=== PATIENT | male | born 1935 | race Caucasian/White ===

== ENCOUNTER → 2016-07-14 | Outpatient (CLI) | payer OTHER ==
[~2016-07-14] MED LIST: ALBUAER3 IN; ASPI81CH43 PO; ATOR20TA50 PO; CHOL20007 PO; FLUT250M2 INH; OMEP20TA44 PO
[2016-07-14 09:21] LABS: Basophils # (auto) 0 uL; Basophils % (auto) 0.3 % (0.0-2.0); DEFINITIVE VIEW TRANSMISSION; Eosinophils # (auto) 0.2 uL; Eosinophils % (auto) 2.4 % (0.0-7.0); Hematocrit 42.5 % (41.0-53.0); Hemoglobin 13.9 g/dL (13.5-17.5); Lymphocytes # (auto) 2.2 uL; Lymphocytes % (auto) 25.8 % (10.0-50.0); Mean Corpuscular Hemoglobin 26.5 pg (28.0-32.0); Mean Corpuscular Hgb Conc. 32.6 g/dL (32.0-36.0); Mean Corpuscular Volume 81.4 fL (80.0-100.0); Mean Platelet Volume 9.4 fL (7.4-10.4); Monocytes # (auto) 1.2 uL; Monocytes % (auto) 13.9 % (0.0-12.0); Neutrophils # (auto) 4.8 uL; Neutrophils % (auto) 57.6 % (37.0-80.0); Platelet Count (auto) 238 10^3/uL (140-450); White Blood Cell 8.4 10^3/uL (4.4-10.8)
[2016-07-14 09:30] LABS: Urine Bilirubin Negative (Negative); Urine Blood Negative /uL (Negative); Urine Color Yellow (Yellow); Urine Glucose Normal (Normal); Urine Ketone Negative (Negative); Urine Nitrite Negative (Negative); Urine RBC <1 /hpf (0 - 3); Urine Urobilinogen Normal (Negative); Urine pH 5.5 (5.0-8.0)
[2016-07-14 09:52] LABS: Albumin 3.4 g/dL (3.4-5.0); BUN/Creatinine Ratio 15.2; Bilirubin, Total 0.6 mg/dL (0.2-1.0); Calcium 8.8 mg/dL (8.5-10.1); Potassium 4.2 mmol/L (3.5-5.1); Total Protein 6.9 g/dL (6.4-8.2)
== END | disposition home or self-care (01) ==
LOC: LAB 08:07
DX: I10 Essential (primary) hypertension (principal); C67.9 Malignant neoplasm of bladder, unspecified; N18.2 Chronic kidney disease, stage 2 (mild); E78.4 Other hyperlipidemia
CPT/HCPCS: 36415; 80053; 80061; 81001; 84443; 85025

== ENCOUNTER → 2016-08-06 | Outpatient (CLI) | payer OTHER | END | disposition home or self-care (01) | LOC: LAB 08:51 | DX: C67.9 Malignant neoplasm of bladder, unspecified (principal) | CPT/HCPCS: 36415; 82565; 84520 ==

== ENCOUNTER 2016-08-17 06:44 | Day surgery (SDC) | payer OTHER ==
[2016-08-16 13:27] LABS: Basophils # (auto) 0 uL; Basophils % (auto) 0.4 % (0.0-2.0); DEFINITIVE VIEW TRANSMISSION; Eosinophils # (auto) 0.1 uL; Eosinophils % (auto) 1.6 % (0.0-7.0); Hematocrit 45.3 % (41.0-53.0); Lymphocytes # (auto) 2.3 uL; Lymphocytes % (auto) 28.7 % (10.0-50.0); Mean Corpuscular Hgb Conc. 33.1 g/dL (32.0-36.0); Mean Corpuscular Volume 81.5 fL (80.0-100.0); Mean Platelet Volume 9.4 fL (7.4-10.4); Monocytes # (auto) 1.3 uL; Monocytes % (auto) 16.7 % (0.0-12.0); Neutrophils # (auto) 4.2 uL; Neutrophils % (auto) 52.6 % (37.0-80.0); Platelet Count (auto) 219 10^3/uL (140-450); Red Cell Distribution Width 17.1 % (11.6-16.0); White Blood Cell 7.9 10^3/uL (4.4-10.8)
[2016-08-16 13:32] LABS: INR 1.01 (0.9-1.15); Partial Thromboplastin Time 27.7 sec (22.64-33.71); Prothrombin Time 10.9 sec (9.37-12.3)
[2016-08-16 13:42] LABS: Potassium 4.2 mmol/L (3.5-5.1)
[2016-08-16 13:48] LABS: Albumin 3.5 g/dL (3.4-5.0); BUN/Creatinine Ratio 13.1; Bilirubin, Total 0.4 mg/dL (0.2-1.0)
[~2016-08-17] VITALS: Ht 165.1 cm; Wt 68.5 kg
[~2016-08-17 06:44] MED LIST changes: -CHOL20007 PO
[2016-08-17] MEDS ORDERED: ceFAZolin 1GM/50ML D5W 50 ML IV ONE (07:17)
[2016-08-17] MEDS ORDERED: PROPOFOL 10 MG/ML 20 ML IV ONE (07:17)
[2016-08-17] MEDS ORDERED: fentaNYL CITRATE 100 MCG/2 ML VL ONE (08:24)
[2016-08-17] MEDS ORDERED: MORPHINE SULF INJ 2 MG/ML SYRINGE 1ML IV PRN (09:30)
[2016-08-17] MEDS ORDERED: ePHEDrine SULFATE 50 MG/ML AMP IV PRN (09:30)
[2016-08-17] MEDS ORDERED: hydrALAZINE HCL 20 MG/ML VL IV PRN (09:30)
[2016-08-17] MEDS ORDERED: ONDANSETRON HCL 4 MG/2 ML VIAL IV ONE (09:30)
[2016-08-17 10:30] VITALS: BP 131/65
== END 2016-08-17 10:30 | disposition home or self-care (01) ==
LOC: SUR 06:44
PROVIDERS: ATTEND Urology
DX: D49.4 Neoplasm of unspecified behavior of bladder (principal); J44.9 Chronic obstructive pulmonary disease, unspecified; Z87.891 Personal history of nicotine dependence
CPT/HCPCS: 36415; 52234; 80053; 85025; 85610; 85730; J0690; J2704; J3010

== ENCOUNTER → 2017-02-16 | Outpatient (CLI) | payer OTHER | LOC: XY 09:14 | PROVIDERS: ATTEND Internal Medicine Cardiovascular Disease | DX: I35.8 Other nonrheumatic aortic valve disorders (principal) | CPT/HCPCS: 78452; 93017; 93306; A9500 ==

== ENCOUNTER 2017-03-22 07:47 | Day surgery (SDC) | payer OTHER ==
[2017-03-21 13:22] LABS: Partial Thromboplastin Time 27.8 sec (22.64-33.71); Prothrombin Time 10.9 sec (9.37-12.3)
[2017-03-21 13:24] LABS: Albumin 3.3 g/dL (3.4-5.0); BUN/Creatinine Ratio 15.6; Bilirubin, Total 0.5 mg/dL (0.2-1.0); Calcium 8.9 mg/dL (8.5-10.1); Potassium 3.9 mmol/L (3.5-5.1); Total Protein 7.1 g/dL (6.4-8.2)
[2017-03-21 13:30] LABS: Basophils # (auto) 0.1 uL; Basophils % (auto) 0.8 % (0.0-2.0); Eosinophils # (auto) 0.2 uL; Eosinophils % (auto) 2.8 % (0.0-7.0); Hematocrit 37.7 % (41.0-53.0); Hemoglobin 12.4 g/dL (13.5-17.5); Lymphocytes % (auto) 24.6 % (10.0-50.0); Mean Corpuscular Hemoglobin 26.5 pg (28.0-32.0); Mean Corpuscular Hgb Conc. 32.9 g/dL (32.0-36.0); Mean Corpuscular Volume 80.5 fL (80.0-100.0); Mean Platelet Volume 8.9 fL (6.9-10.8); Monocytes # (auto) 1.2 uL; Monocytes % (auto) 15.4 % (0.0-12.0); Neutrophils # (auto) 4.5 uL; Neutrophils % (auto) 56.4 % (37.0-80.0); Nucleated Red Blood Cells % 0.1 %; Platelet Count (auto) 215 10^3/uL (140-450); Red Cell Distribution Width 14.2 % (11.8-14.3)
[2017-03-21 13:38] LABS: Urine Bilirubin Negative (Negative); Urine Blood 3+ /uL (Negative); Urine Color Red (Yellow); Urine Glucose Normal (Normal); Urine Ketone Negative (Negative); Urine Nitrite Negative (Negative); Urine RBC 5075 /hpf (0 - 3); Urine Urobilinogen Normal (Negative)
[~2017-03-22] VITALS: Ht 162.6 cm; Wt 68.0 kg
[~2017-03-22 07:47] MED LIST changes: -ASPI81CH43 PO; -OMEP20TA44 PO
[2017-03-22] MEDS ORDERED: ceFAZolin 1GM/50ML 50 ML IV ONE (08:01)
[2017-03-22] MEDS ORDERED: MITOMYCIN 40 MG in STERILE WATER 60 ML IS ONE (09:00)
[2017-03-22] MEDS ORDERED: LIDOCAINE 2% JELLY 11ml (GLYDO) ONE (09:58)
[2017-03-22] MEDS ORDERED: ONDANSETRON HCL 4 MG/2 ML VIAL ONE (10:13)
[2017-03-22] MEDS ORDERED: DEXAMETHASONE SOD PHOS 10MG/1ML VIAL INJ ONE (10:13)
[2017-03-22] MEDS ORDERED: LIDOCAINE HCL 2 %PF INJ 10ML AMP IJ ONE (10:13)
[2017-03-22] MEDS ORDERED: fentaNYL CITRATE 100 MCG/2 ML VL ONE (10:13)
[2017-03-22] MEDS ORDERED: ROCURONIUM 10MG/ML 10ML VIAL IV ONE (10:13)
[2017-03-22] MEDS ORDERED: PROPOFOL 10 MG/ML 20 ML IV ONE (10:13)
[2017-03-22] MEDS ORDERED: METOPROLOL TARTRATE 1MG/1ML-5ML VIAL IV ONE (10:27)
[2017-03-22] MEDS ORDERED: ePHEDrine SULFATE 50 MG/ML AMP ONE (10:39)
[2017-03-22] MEDS ORDERED: GLYCOPYRROLATE 0.2 MG/ML 1ML VIAL ONE (11:14)
[2017-03-22] MEDS ORDERED: NEOSTIGMINE 1 MG/ML INJ (10mg/10ML VIAL) ONE (11:14)
[2017-03-22] MEDS ORDERED: LABETALOL HCL 5 MG/ML 4ML SYRINGE IV PRN (11:45)
[2017-03-22] MEDS ORDERED: NALOXONE HCL 0.4 MG/ML VIAL IV PRN (11:45)
[2017-03-22] MEDS ORDERED: BELLADONNA ALKAL/OPIUM (16.2/30MG) RECT SUPP PR ONE (11:45)
[2017-03-22] MEDS ORDERED: hydrALAZINE HCL 20 MG/ML VL IV PRN (11:45)
[2017-03-22] MEDS ORDERED: HYDROmorphone HCL 2 MG/ML VL IV PRN (11:45)
[2017-03-22 12:48] VITALS: BP 149/70
== END 2017-03-22 13:13 | disposition home or self-care (01) ==
LOC: SUR 07:47
PROVIDERS: ATTEND Urology
DX: D49.4 Neoplasm of unspecified behavior of bladder (principal); D69.6 Thrombocytopenia, unspecified; J44.9 Chronic obstructive pulmonary disease, unspecified; Z88.0 Allergy status to penicillin; I10 Essential (primary) hypertension; D64.9 Anemia, unspecified; Z87.891 Personal history of nicotine dependence
CPT/HCPCS: 36415; 52240; 80053; 81001; 85025; 85610; 85730; 88307; J0690; J1100; J1170; J2405; J2704; J3010; J9280

== ENCOUNTER → 2017-04-01 | Outpatient (CLI) | payer OTHER | END | disposition home or self-care (01) | LOC: LAB 08:55 | PROVIDERS: ATTEND Urology | DX: C67.9 Malignant neoplasm of bladder, unspecified (principal) | CPT/HCPCS: 36415; 82565; 84520 ==

== ENCOUNTER → 2017-04-04 | Outpatient (CLI) | payer OTHER | END | disposition home or self-care (01) | LOC: XY 08:00 | PROVIDERS: ATTEND Urology | DX: C79.51 Secondary malignant neoplasm of bone (principal) | CPT/HCPCS: 78306; A9503 ==

== ENCOUNTER 2017-04-27 14:06 | Emergency (ER) | payer OTHER ==
[~2017-04-27] VITALS: Ht 162.6 cm; Wt 64.0 kg
[2017-04-27 14:53] LABS: Basophils # (auto) 0 uL; Eosinophils # (auto) 0.1 uL; Lymphocytes # (auto) 1.4 uL; Mean Platelet Volume 7.1 fL (6.9-10.8); Monocytes # (auto) 1.1 uL; Nucleated Red Blood Cells % 0.1 %; White Blood Cell 6.7 10^3/uL (4.4-10.8)
[2017-04-27 14:55] LABS: Basophils % (auto) 0.5 % (0.0-2.0); Eosinophils % (auto) 1.3 % (0.0-7.0); Hematocrit 34.6 % (41.0-53.0); Hemoglobin 11.3 g/dL (13.5-17.5); Lymphocytes % (auto) 20.9 % (10.0-50.0); Mean Corpuscular Hemoglobin 25.2 pg (28.0-32.0); Mean Corpuscular Hgb Conc. 32.7 g/dL (32.0-36.0); Mean Corpuscular Volume 76.9 fL (80.0-100.0); Monocytes % (auto) 16.5 % (0.0-12.0); Neutrophils # (auto) 4.1 uL; Neutrophils % (auto) 60.8 % (37.0-80.0); Platelet Count (auto) 245 10^3/uL (140-450); Red Cell Distribution Width 15.1 % (11.8-14.3)
[2017-04-27 15:19] LABS: Albumin 2.5 g/dL (3.4-5.0); BUN/Creatinine Ratio 12.9; Bilirubin, Total 0.4 mg/dL (0.2-1.0); Calcium 8.2 mg/dL (8.5-10.1); Potassium 3.3 mmol/L (3.5-5.1); Total Protein 6.3 g/dL (6.4-8.2)
[2017-04-27 21:43] LABS: Urine Bilirubin Negative (Negative); Urine Blood 3+ /uL (Negative); Urine Color PINK (Yellow); Urine Glucose Normal (Normal); Urine Ketone 1+ (Negative); Urine Mucus MODERATE (None Seen); Urine Nitrite Negative (Negative); Urine RBC 346 /hpf (0 - 3); Urine Squamous Epithelial Cell FEW /hpf (<5); Urine Urobilinogen Normal (Negative); Urine WBC Clumps PRESENT /hpf (None Seen)
[2017-04-27] MEDS ORDERED: cefTRIAXone 1GM/10ml IVPUSH 10 ML IV ONE (22:15)
[2017-04-27 23:01] VITALS: BP 145/68
[2017-04-29] MEDS ORDERED: OMEP20CA74 PO (09:16)
== END 2017-04-28 00:22 | disposition left against medical advice (07) ==
LOC: ER 14:06
DX: C67.9 Malignant neoplasm of bladder, unspecified (principal); E87.6 Hypokalemia; D64.9 Anemia, unspecified; N39.0 Urinary tract infection, site not specified; Z96.0 Presence of urogenital implants; J44.9 Chronic obstructive pulmonary disease, unspecified; K21.9 Gastro-esophageal reflux disease without esophagitis; E78.5 Hyperlipidemia, unspecified; Z88.1 Allergy status to other antibiotic agents; Z87.891 Personal history of nicotine dependence; Z53.29 Procedure and treatment not carried out because of patient's decision for other reasons
CPT/HCPCS: 36415; 71010; 74176; 80053; 81001; 85025; 93005

== ENCOUNTER → 2017-05-27 | Outpatient (CLI) | payer OTHER ==
[~2017-05-27] MED LIST changes: +OMEP20CA74 PO
[2017-05-27 09:39] LABS: Basophils # (auto) 0.1 uL; Basophils % (auto) 1.7 % (0.0-2.0); Eosinophils # (auto) 0.2 uL; Monocytes # (auto) 1.1 uL; Platelet Count (auto) 279 10^3/uL (140-450)
[2017-05-27 09:43] LABS: Eosinophils % (auto) 2.6 % (0.0-7.0); Hematocrit 34.2 % (41.0-53.0); Hemoglobin 10.9 g/dL (13.5-17.5); Lymphocytes # (auto) 2.2 uL; Mean Corpuscular Hemoglobin 24.3 pg (28.0-32.0); Mean Corpuscular Hgb Conc. 31.9 g/dL (32.0-36.0); Mean Corpuscular Volume 76.1 fL (80.0-100.0); Monocytes % (auto) 15.7 % (0.0-12.0); Neutrophils # (auto) 3.4 uL; Nucleated Red Blood Cells % 0.1 %; Red Blood Cells 4.49 10^6/uL (4.5-5.90)
[2017-05-27 09:56] LABS: Albumin 2.4 g/dL (3.4-5.0); BUN/Creatinine Ratio 13.3; Bilirubin, Total 0.4 mg/dL (0.2-1.0); Calcium 8.3 mg/dL (8.5-10.1); Potassium 3.5 mmol/L (3.5-5.1); Total Protein 6.8 g/dL (6.4-8.2)
== END | disposition home or self-care (01) ==
LOC: LAB 08:45
PROVIDERS: ATTEND Internal Medicine
DX: C80.1 Malignant (primary) neoplasm, unspecified (principal); J44.9 Chronic obstructive pulmonary disease, unspecified; E63.9 Nutritional deficiency, unspecified; E78.5 Hyperlipidemia, unspecified; Z85.59 Personal history of malignant neoplasm of other urinary tract organ
CPT/HCPCS: 36415; 80053; 80061; 82607; 84443; 85025